=== PATIENT | female | born 1990 | race African-American/Black ===

== ENCOUNTER 2016-10-15 15:31 | Emergency (ER) | payer MEDICAID ==
[~2016-10-15] VITALS: Ht 167.6 cm; Wt 70.9 kg
[~2016-10-15 15:31] MED LIST: ALBEPOW6 PO; STRO3TAB PO
[2016-10-15 15:37] VITALS: BP 100/58; PULSE 64; RESP 14; TEMP 97.8; O2SAT 97
[2016-10-16 02:07] LABS: BACTERIA, URINE OCC /hpf; BLOOD, URINE NEG (NEG); COMMENT (UR) CULT NOT INDICATED; CULTURE IF INDICATED CULT NOT INDICATED; GLUCOSE,URINE NEG (NEG); HYALINE CAST, URINE 2 /lpf (RARE); KETONE, URINE NEG (NEG); MUCUS URINE MANY /lpf (OCC); NITRITE,URINE NEG (NEG); PH, URINE 5.5 (5.0-8.5); SQUAMOUS EPITHELIAL CELL URINE 5 /hpf (0-5); URINE COLOR YELLOW (YELLW/STRAW)
[2016-10-16] MEDS ORDERED: ALBE200T PO (02:11)
--- NOTE | 2016-10-16 02:12 | PD ---
HPI Chief Complaint: Case Checker Problem/Complaint Time Seen by Provider: 00:39 Travel History International Travel<30 days: No Contact w/Intl Traveler<30days: No Traveled to known affect area: No History of Present Illness HPI The patient's 26 years old. She reports some perivaginal and perirectal itching as well as a vague moving sensation and she consents. It's worse at night. She has no dysuria or vaginal bleeding or vaginal discharge. Last menstruation 2 weeks prior. No fever. No nausea or vomiting. 1 para 1. She denies history of STDs. He reports some mild constipation as of late. About a year ago she experienced the same symptoms and was diagnosed with pinworm infestation. Albendazol was effective at that time. [facility] Past Medical History Anxiety: Yes Depression: Yes Diminished Hearing: No Reproductive: Yes (PRECLAMPSIA) Immunizations Current: Yes Tetanus Vaccination: Unknown Influenza Vaccination: No ?: Not LMP: 09/23/2016 : 1 Para: 1 Past Surgical History Surgical History: No Previous Surgery Section: Yes (PREECLAMPSIA WITH ) Social History Alcohol Use: No Tobacco Use: No Substance Use: No Allergies-Medications (Allergen,Severity, Reaction): Coded Allergies: No Known Allergies (Unverified , 11/05/15) Reported Meds & Prescriptions Reported Meds & Active Scripts Active Albenza (Albendazole) 200 Mg Tab 400 Mg PO ONCE Review of Systems Except as stated in HPI: all other systems reviewed are Neg Physical Exam Narrative GENERAL: 36-year-old female pleasant no acute distress GYNECOLOGIC: External genitalia normal. No cervical motion tenderness. Trace white discharge within the os. No adnexal mass. SKIN: Warm and dry. HEAD: Atraumatic. Normocephalic. EYES: Pupils equal and round. No scleral icterus. No injection or drainage. ENT: No nasal bleeding or discharge. Mucous membranes pink and moist. NECK: Trachea midline. No JVD. CARDIOVASCULAR: Regular rate and rhythm. No murmur appreciated. RESPIRATORY: No accessory muscle use. Clear to auscultation. Breath sounds equal bilaterally. GASTROINTESTINAL: Abdomen soft, non-tender, nondistended. Hepatic and splenic margins not palpable. MUSCULOSKELETAL: No obvious deformities. No clubbing. No cyanosis. No edema. NEUROLOGICAL: Awake and alert. No obvious cranial nerve deficits. Motor grossly within normal limits. Normal speech. PSYCHIATRIC: Appropriate mood and affect; insight and judgment normal. Data Data Last Documented VS Vital Signs Date Time Temp Pulse Resp B/P Pulse Ox O2 Delivery O2 Flow Rate FiO2 10/16/16 00:50 16 10/15/16 15:37 97.8 64 100/58 97 Room Air Vital signs reviewed Orders Gc And Chlamydia Pcr (10/16/16 01:14) Wet Prep Profile (10/16/16 01:14) Urinalysis - C+S If Indicated (10/16/16 01:14) Ed Urine Pregnancytest Poc (10/16/16 01:14) Labs Laboratory Tests Test 10/16/16 01:40 Urine Color YELLOW Urine Turbidity HAZY Urine pH 5.5 Urine Specific [place] 1.031 Urine Protein TRACE mg/dL Urine Glucose (UA) NEG mg/dL Urine Ketones NEG mg/dL Urine Occult Blood NEG Urine Nitrite NEG Urine Bilirubin NEG Urine Urobilinogen LESS THAN 2.0 MG/DL Urine Leukocyte Esterase MOD Urine RBC 2 /hpf Urine WBC 5 /hpf Urine Squamous Epithelial 5 /hpf Cells Urine Bacteria OCC /hpf Urine Hyaline Casts 2 /lpf Urine Mucus MANY /lpf Microscopic Urinalysis Comment CULT NOT INDICATED Clue Cells (Wet Prep) NONE SEEN Vaginal Trichomonas (Wet Prep) NONE SEEN Vaginal Yeast (Wet Prep) NONE SEEN MDM Medical Decision Making Medical Screen Exam Complete: Yes Emergency Medical Condition: Yes Medical Record Reviewed: Yes Differential Diagnosis IUP, UTI, ectopic , ov torsion, appendicitis, TOA, cervicitis, BV, Trichomoniasis, ov cyst, hernia, mittelschmerz, pain from menstruation Narrative Course Urinalysis reveals no UTI Wet prep is negative 3 Based on the story prior diagnosis the patient is likely suffer from morbid infestation. Albendazol prescribed. Return precautions discussed. Patient ready for discharge. Diagnosis Primary Impression: Pinworms Referrals: Primary Care Physician 2 days Additional Instructions: You have a choice when it comes to health care, and we are glad that you chose [facility]. Hopefully, we have met your expectations on today's visit. You are welcome to return to [facility] at any time, as we are committed to meeting the health care needs of our community. Med/Other Pt SpecificInfo: Prescription(s) given Scripts Albendazole (Albenza)200 Mg [id number] Mg PO ONCE #1 TAB Ref 1 Prov:Justice Bruner MD 10/16/16 Disposition: 01 DISCHARGE HOME Condition: Stable Justice Bruner MD Oct 16, 2016 02:12
[2016-10-16 03:57] LABS: CHLAMYDIA PCR NOT DETECTED (NOT DETECT); NEISSERIA PCR NOT DETECTED (NOT DETECT)
== END 2016-10-16 02:32 | disposition home or self-care (01) ==
LOC: NEPE 15:31
DX: B80 Enterobiasis (principal)
CPT/HCPCS: 81001; 84703; 87210; 87491; 87591; 99283